=== PATIENT | female | born 1980 | race Caucasian/White ===

== ENCOUNTER 2023-01-09 17:19 | Emergency (ER) | payer OTHER, SELFPAY ==
[2023-01-09] VITALS (9 sets, daily range): BP systolic 154–187; BP diastolic 74–105; PULSE 80–106; RESP 14–18; TEMP 36.3; O2SAT 95–98; BMI 37.2
--- NOTE | 2023-01-09 17:55 | CRLHL7_ITS ---
For Patients: As a result of the Century Cures Act, medical imaging exams and procedure reports are released immediately into your electronic medical record. You may view this report before your referring provider. If you have questions, please contact your health care provider. INDICATION: Chest pain TECHNIQUE: CT chest pulmonary angiogram acquired with IV contrast. 95 mL Isovue 370 COMPARISON: None FINDINGS: Cardiovascular structures: Normal vascular enhancement of the pulmonary arteries, no sign of pulmonary embolism. Heart size is normal. No sign of aneurysm or dissection in the thoracic aorta. Mediastinum and evy: No mass or adenopathy. Lungs: Clear. Pleura and pericardium: No effusions. Chest wall and axilla: No mass or adenopathy. Bones: No significant findings. Upper abdomen: Fatty appearance of the liver cholecystectomy IMPRESSION: 1. No pulmonary emboli. Lungs appear clear. Please note that all CT scans at this facility use dose modulation, iterative reconstruction, and/or weight-based dosing when appropriate to reduce radiation dose to as low as reasonably achievable. Dictated by Pura Lopez MD @ 01/09/2023 7:33:08 PM (Electronically Signed)
--- NOTE | 2023-01-09 18:00 | ED.GENADULT ---
HPI - General Adult General Chief complaint: Chest Pain Stated complaint: sharp pain in sternum Time Seen by Provider: 01/09/23 17:32 Source: patient Mode of arrival: ambulatory Limitations: no limitations History of Present Illness HPI narrative: 42-year-old female presents today with chest pain. Patient states that it started around lunchtime so approximately 6 hours ago. The pain is located right under the sternum radiates right through her back and into her right jaw. It comes and goes. Moving and deep breathing makes it slightly worse. Nothing seems to make it better when it comes. When it does come, patient feels short of breath and a little sweaty. Unclear how long the episodes last for. Patient is quite concerned because she states that she has a significant family history of coronary artery disease with multiple cousins and uncles having heart attacks as early as the age of 38. She denies any fevers or chills, nausea vomiting. She denies any recent traveling. Patient is on control and denies . She denies any personal history of blood clots. She denies any tobacco use. She denies any illegal drug use. She takes amlodipine and is supposed to be taking losartan for blood pressure but she takes that less frequently than prescribed. Related Data Allergies Allergy/AdvReac Type Severity Reaction Status Date / Time codeine AdvReac Severe panic Verified 01/09/23 17:47 attack Sulfa (Sulfonamide AdvReac Severe Hives Verified 01/09/23 17:47 Antibiotics) amoxicillin [From Augmentin] AdvReac Mild Nausea Verified 01/09/23 17:47 clavulanic acid AdvReac Mild Nausea Verified 01/09/23 17:47 [From Augmentin] Review of Systems Status of ROS: Reports: 10 or more systems reviewed and unremarkable except as noted in History and below [facility] Social History Smoking Status: Never smoker How often do you have a drink containing alcohol: never AUDIT-C Alcohol total score: 0 Non-prescribed substance use: denies use Exam Narrative: Exam Narrative: Well-nourished well-developed patient in no acute distress. She is a bit flushed. Alert and oriented. Answers questions appropriately. Mood and affect are appropriate. Thoughts are goal oriented and rational. No tangential or magical thinking noted. Patient speaks in full sentences without needing to catch her breath. HEENT: Normocephalic atraumatic. Pupils are equally round reactive to light. Extraocular muscles are intact. Conjunctivae are moist without any icterus noted. Moist mucous membranes. Posterior pharynx is normal. Neck is soft without any lymphadenopathy or thyromegaly. No masses are appreciated. Cardiovascular: Heart is regular rate and rhythm S1 and S2 are present without any murmurs. She has mild discomfort with palpation of the sternum. Lungs: Clear to auscultation bilaterally no wheezes rhonchi or rales are appreciated. Patient takes deep breaths without any discomfort. Abdomen: Soft and nontender nondistended with normal bowel sounds. No guarding or rebound. No masses or organomegaly appreciated. Extremities: Bilateral lower extremities are without edema. Normal DP and PT pulses. Skin: Well perfused without any obvious rashes. Const: Vital Signs, click to edit/add: Vital Signs - 24 hr 01/09/23 17:41 01/09/23 17:46 01/09/23 17:48 Temperature 97.3 F L Pulse Rate 102 H Pulse Rate [Right Pulse Oximeter] 106 H Respiratory Rate 18 14 Blood Pressure 177/95 H Blood Pressure [Ri ght Upper Arm] 187/101 H Pulse Oximetry 95 98 95 Oxygen Delivery Me thod Room Air 01/09/23 18:00 01/09/23 19:00 01/09/23 19:15 Temperature Pulse Rate 104 H 100 96 Pulse Rate [Right Pulse Oximeter] Respiratory Rate Blood Pressure Blood Pressure [Ri ght Upper Arm] Pulse Oximetry 96 96 95 Oxygen Delivery Me thod 01/09/23 19:30 Temperature Pulse Rate 98 Pulse Rate [Right Pulse Oximeter] Respiratory Rate Blood Pressure Blood Pressure [Ri ght Upper Arm] Pulse Oximetry 96 Oxygen Delivery Me thod Course Course ED Course: EKG, read by me, shows sinus tachycardia with a pulse of 104. Patient is given an aspirin and labs were drawn. Lab work unremarkable. Repeat EKG unchanged, except her pulse went down to 94. Repeat troponin remained 0. She remained asymptomatic while she was here. Did give her a dose of Carafate prior to discharge. Vital Signs Vital signs: Initial Vital Signs Temperature 97.3 F L 01/09/23 17:41 Temperature Source Temporal Artery Scan 01/09/23 17:41 Pulse Rate 106 H 01/09/23 17:41 Pulse Rhythm Regular 01/09/23 17:41 Pulse Strength 3+ Normal 01/09/23 17:41 Respiratory Rate 18 01/09/23 17:41 Blood Pressure 187/101 H 01/09/23 17:41 Blood Pressure Mean 129 H 01/09/23 17:41 Blood Pressure Position Supine 01/09/23 17:41 Pulse Oximetry 95 01/09/23 17:41 Oxygen Delivery Method Room Air 01/09/23 17:41 Vital Signs Temperature 97.3 F L 01/09/23 17:41 Pulse Rate 106 H 01/09/23 17:41 Respiratory Rate 18 01/09/23 17:41 Blood Pressure 187/101 H 01/09/23 17:41 Pulse Oximetry 95 01/09/23 17:41 Oxygen Delivery Method Room Air 01/09/23 17:41 Temperature 97.3 F L 01/09/23 17:41 Pulse Rate 98 01/09/23 19:30 Respiratory Rate 14 01/09/23 17:48 Blood Pressure 177/95 H 01/09/23 17:48 Pulse Oximetry 96 01/09/23 19:30 Oxygen Delivery Method Room Air 01/09/23 17:41 Medical Decision Making MDM Narrative Medical decision making narrative: 42-year-old female with intermittent chest pain, workup done today was unremarkable. At this point I do recommend that she follow up with her primary care provider to discuss GERD symptoms versus further workup for chest pain. Certainly return to the ED if she feels like her symptoms are getting worse. Patient was in agreement with everything we discussed and had no other questions. Lab Data Lab results reviewed: Yes I reviewed the patient's lab results Labs: Lab Results 01/09/23 01/09/23 01/09/23 Range/Units 17:45 17:56 18:14 WBC 6.92 (4.50-11.00) K/uL RBC 4.74 (4.00-5.20) m/uL Hgb 13.8 (12.0-16.0) gm/dL Hct 42.4 (33.0-51.0) % MCV 90 (80-100) fL MCH 29 (26-34) pg MCHC 33 (32-36) gm/dL RDW Coeff of Tiffanie 12.4 (11.5-15.5) % Plt Count 358 (140-440) K/uL Neut % (Auto) 51.8 (42.0-72.0) % Lymph % (Auto) 38.9 (20-44) % [place] % (Auto) 6.2 (0.0-11.0) % Eos % (Auto) 2.7 (0.0-7.0) % Baso % (Auto) 0.1 (0.0-3.0) % Neut # (Auto) 3.58 (1.7-7.0) K/uL Lymph # (Auto) 2.69 (0.90-2.90) K/uL [place] # (Auto) 0.40 (0.00-0.90) K/UL Eos # (Auto) 0.19 (0.00-0.50) K/uL Baso # (Auto) 0.01 (0.00-0.30) K/uL Abs Immat Gran (auto) 0.02 (0.00-0.30) K/uL Imm/Tot Granulo (auto) 0.3 % ESR 12 (2-20) mm/hr D-Dimer Quant (PE/DVT) 0.72 H (0.00-0.50) ug/ml Sodium 139 (135-149) mmol/L Potassium 4.0 (3.6-5.1) mmol/L Chloride 104 (96-114) mmol/L Carbon Dioxide 24 (20-32) mmol/L Anion Gap 11 (7-15) mEq/L BUN 13 (5-24) mg/dL Creatinine 0.7 (0.5-1.5) mg/dL Estimated Creat Clear 87.49 Estimated GFR 111 ml/min Glucose 91 (60-115) mg/dL Lactate 1.4 (0.5-1.9) mmol/L Calcium 9.7 (8.4-10.6) mg/dL Total Bilirubin 0.4 (0.1-1.5) mg/dL Direct Bilirubin 0.0 (0.0-0.5) mg/dL AST 59 H (12-35) U/L ALT 42 H (4-35) U/L Alkaline Phosphatase 66 (40-150) U/L Troponin I < 0.01 L (0.01-0.04) ng/mL C-Reactive Protein 1.3 H (0.5-1.0) mg/dL Total Protein 7.8 (6.0-8.3) g/dL Albumin 4.5 (3.3-5.0) g/dL Lipase 156 (23-300) U/L Urine HCG, Qual Negative (Negative) POC Troponin I 0.00 L (0.01-0.04) ng/ml 01/09/23 Range/Units 19:30 WBC (4.50-11.00) K/uL RBC (4.00-5.20) m/uL Hgb (12.0-16.0) gm/dL Hct (33.0-51.0) % MCV (80-100) fL MCH (26-34) pg MCHC (32-36) gm/dL RDW Coeff of [place]anie (11.5-15.5) % Plt Count (140-440) K/uL Neut % (Auto) (42.0-72.0) % Lymph % (Auto) (20-44) % [place] % (Auto) (0.0-11.0) % Eos % (Auto) (0.0-7.0) % Baso % (Auto) (0.0-3.0) % Neut # (Auto) (1.7-7.0) K/uL Lymph # (Auto) (0.90-2.90) K/uL [place] # (Auto) (0.00-0.90) K/UL Eos # (Auto) (0.00-0.50) K/uL Baso # (Auto) (0.00-0.30) K/uL Abs Immat Gran (auto) (0.00-0.30) K/uL Imm/Tot Granulo (auto) % ESR (2-20) mm/hr D-Dimer Quant (PE/DVT) (0.00-0.50) ug/ml Sodium (135-149) mmol/L Potassium (3.6-5.1) mmol/L Chloride (96-114) mmol/L Carbon Dioxide (20-32) mmol/L Anion Gap (7-15) mEq/L BUN (5-24) mg/dL Creatinine (0.5-1.5) mg/dL Estimated Creat Clear Estimated GFR ml/min Glucose (60-115) mg/dL Lactate (0.5-1.9) mmol/L Calcium (8.4-10.6) mg/dL Total Bilirubin (0.1-1.5) mg/dL Direct Bilirubin (0.0-0.5) mg/dL AST (12-35) U/L ALT (4-35) U/L Alkaline Phosphatase (40-150) U/L Troponin I (0.01-0.04) ng/mL C-Reactive Protein (0.5-1.0) mg/dL Total Protein (6.0-8.3) g/dL Albumin (3.3-5.0) g/dL Lipase (23-300) U/L Urine HCG, Qual (Negative) POC Troponin I 0.00 L (0.01-0.04) ng/ml Imaging Data CT scan - chest: Attestation: I have reviewed the pertinent imaging results. Radiologist's impression: CT chest pulmonary angiogram acquired with IV contrast. 95 mL Isovue 370 COMPARISON: None FINDINGS: Cardiovascular structures: Normal vascular enhancement of the pulmonary arteries, no sign of pulmonary embolism. Heart size is normal. No sign of aneurysm or dissection in the thoracic aorta. Mediastinum and evy: No mass or adenopathy. Lungs: Clear. Pleura and pericardium: No effusions. Chest wall and axilla: No mass or adenopathy. Bones: No significant findings. Upper abdomen: Fatty appearance of the liver cholecystectomy IMPRESSION: 1. No pulmonary emboli. Lungs appear clear. Discharge Plan Discharge Clinical Impression: Atypical chest pain Patient Disposition: Home, Self-Care Condition: Stable Additional Instructions: Recommend you follow-up with primary care provider to discuss the symptoms you are having today. We did check for any evidence of heart attacks or blood clots-these were all negative. Follow Up/Referrals: Matthew Wang MD [Primary Care Provider] - Stand Alone Forms: [employer] Info Instructions
[2023-01-09] MEDS: ASPIRIN 81 MG TAB.CHEW 324 MG PO (18:08)
[2023-01-09 18:11] LABS: Lactate* 1.4 mmol/L (0.5-1.9)
[2023-01-09 18:14] LABS: Basophils Absolute Auto 0.01 K/uL (0.00-0.30); Basophils Percent Auto 0.1 % (0.0-3.0); Eosinophils Absolute Auto 0.19 K/uL (0.00-0.50); Eosinophils Percent Auto 2.7 % (0.0-7.0); Hematocrit 42.4 % (33.0-51.0); Hemoglobin* 13.8 gm/dL (12.0-16.0); Immature Granulocytes Abs Auto 0.02 K/uL (0.00-0.30); Immature Granulocytes Pct Auto 0.3 %; Lymphocytes Absolute Auto 2.69 K/uL (0.90-2.90); Lymphocytes Percent Auto 38.9 % (20-44); Mean Corpuscular HGB Conc 33 gm/dL (32-36); Mean Corpuscular Hemoglobin 29 pg (26-34); Mean Corpuscular Volume 90 fL (80-100); Monocytes Percent Auto 6.2 % (0.0-11.0); Neutrophils Absolute Auto 3.58 K/uL (1.7-7.0); Neutrophils Percent Auto 51.8 % (42.0-72.0); Platelet Count* 358 K/uL (140-440); RDW Coefficient of Variation % 12.4 % (11.5-15.5); Red Blood Count 4.74 m/uL (4.00-5.20); White Blood Count* 6.92 K/uL (4.50-11.00)
[2023-01-09 18:21] LABS: Slide Review Reflex No
[2023-01-09 18:22] LABS: Ur HCG Qualitative* Negative (Negative)
[2023-01-09 18:27] LABS: Albumin* 4.5 g/dL (3.3-5.0)
[2023-01-09 18:28] LABS: Chloride* 104 mmol/L (96-114); Sodium* 139 mmol/L (135-149)
[2023-01-09 18:30] LABS: Alanine Aminotransferase* 42 U/L (4-35); Alkaline Phosphatase* 66 U/L (40-150); Aspartate Amino Transferase* 59 U/L (12-35); Bilirubin Total* 0.4 mg/dL (0.1-1.5); Lipase* 156 U/L (23-300); Total Protein* 7.8 g/dL (6.0-8.3)
[2023-01-09 18:31] LABS: Anion Gap 11 mEq/L (7-15); Blood Urea Nitrogen* 13 mg/dL (5-24); Carbon Dioxide* 24 mmol/L (20-32); Creatinine* 0.7 mg/dL (0.5-1.5); Est. Creatinine Clearance* 87.49; Estimated Glomerular Filt Rate 111 ml/min
[2023-01-09 18:32] LABS: Calcium* 9.7 mg/dL (8.4-10.6); Glucose* 91 mg/dL (60-115)
[2023-01-09 18:33] LABS: D Dimer Quantitative* 0.72 ug/ml (0.00-0.50)
[2023-01-09 18:34] LABS: C Reactive Protein* 1.3 mg/dL (0.5-1.0)
[2023-01-09 18:42] LABS: Troponin I* < 0.01 ng/mL (0.01-0.04)
[2023-01-09 19:10] LABS: Erythrocyte SedimentationRate* 12 mm/hr (2-20)
[2023-01-09] MEDS: SUCRALFATE 1 GM TABLET PO (19:59)
== END 2023-01-09 20:19 | disposition home or self-care (01) ==
PROVIDERS: Emergency Provider Family Medicine; PCP Family Medicine
DX: R07.89 Other chest pain (principal)
CPT/HCPCS: 36415; 71275; 80048; 80076; 81025; 83605; 83690; 84484; 85025; 85379; 85651; 86140; 93005; 94761; 99284; 99285; A9270; Q9967

== ENCOUNTER 2023-04-28 14:45 | Outpatient (RCR) | payer OTHER, SELFPAY | END 2023-08-26 23:59 | disposition home or self-care (01) | PROVIDERS: PCP Family Medicine; Visit Provider Family Medicine | DX: G56.03 Carpal tunnel syndrome, bilateral upper limbs (principal); Z51.89 Encounter for other specified aftercare | CPT/HCPCS: 97035; 97110; 97140; 97166; X5282 ==